=== PATIENT | male | born 1985 | race African-American/Black ===

== ENCOUNTER 2017-09-12 07:37 | Emergency (ER) | payer OTHER ==
[2017-09-12] MEDS ORDERED: Ketorolac 60 MG/2 ML SDV IM ONE (08:16)
--- NOTE | 2017-09-12 08:28 | EDM.PDOC ---
ED HPI GENERAL MEDICAL PROBLEM - General Chief Complaint: General Stated Complaint: RIGHT SHOULDER PAIN/Neck pain Time Seen by Provider: 09/12/17 08:05 Source of Information: Reports: Patient History Limitations: Reports: No Limitations - History of Present Illness INITIAL COMMENTS - FREE TEXT/NARRATIVE: 32 YO presents to ER complaining of neck and right shoulder pain which began yesterday after lifting multiple bags of sunflower seeds at work. Pt denies any arm numbness, weakness or pain. Pt without any neck or shoulder pain history. Denies fever/chills or nausea/vomiting. Onset Date: 09/11/17 Duration: Day(s): (1) Location: Reports: Neck, Upper Extremity, Right Quality: Reports: Ache Severity: Mild Improves with: Reports: Rest Worsens with: Reports: Movement Context: Reports: Activity Associated Symptoms: Reports: No Other Symptoms Right Shoulder Pain Score (Numeric/FACES): 7 - Related Data Home Meds: Home Meds Cyclobenzaprine [Flexeril] 10 mg PO TID PRN #15 tab 09/12/17 [Rx] Ibuprofen [Motrin] 800 mg PO TID #15 tablet 09/12/17 [Rx] traMADol [Ultram] 50 mg PO Q6H PRN #15 tab 09/12/17 [Rx] Social & Family History - Tobacco Use Smoking Status *Q: Current Every Day Smoker Years of Tobacco use: 1 Packs/Tins Daily: 0.3 Used Tobacco, but Quit: No Second Hand Smoke Exposure: No - Caffeine Use Caffeine Use: Reports: Soda - Alcohol Use Days Per Week of Alcohol Use: 1 Number of Drinks Per Day: 6 Total Drinks Per Week: 6 - Recreational Drug Use Recreational Drug Use: No ED ROS GENERAL - Review of Systems Review Of Systems: See Below Constitutional: Reports: No Symptoms HEENT: Reports: No Symptoms Respiratory: Reports: No Symptoms Cardiovascular: Reports: No Symptoms Endocrine: Reports: No Symptoms GI/Abdominal: Reports: No Symptoms : Reports: No Symptoms Musculoskeletal: Reports: Neck Pain, Shoulder Pain Skin: Reports: No Symptoms Neurological: Reports: No Symptoms Psychiatric: Reports: No Symptoms Hematologic/Lymphatic: Reports: No Symptoms Immunologic: Reports: No Symptoms ED EXAM, GENERAL - Physical Exam Exam: See Below Exam Limited By: No Limitations General Appearance: Alert, WD/WN, No Apparent Distress Nose: Normal Inspection, Normal Mucosa, No Blood Throat/Mouth: Normal Inspection, Normal Lips, Normal Teeth, Normal Gums, Normal Oropharynx, Normal Voice, No Airway Compromise Head: Atraumatic, Normocephalic Neck: Supple, Full Range of Motion, Tender Lateral Respiratory/Chest: No Respiratory Distress, Lungs Clear, Normal Breath Sounds, No Accessory Muscle Use, Chest Non-Tender Cardiovascular: Normal Peripheral Pulses, Regular Rate, Rhythm, No Edema, No Gallop, No JVD, No Murmur, No Rub GI/Abdominal: Normal Bowel Sounds, Soft, Non-Tender, No Organomegaly, No Distention, No Abnormal Bruit, No Mass Back Exam: Normal Inspection, Full Range of Motion, NT Extremities: Normal Inspection, Normal Range of Motion, Non-Tender, Normal Capillary Refill, No Pedal Edema Neurological: Alert, Oriented, CN II-XII Intact, Normal Cognition, Normal Gait, Normal Reflexes, No Motor/Sensory Deficits Psychiatric: Normal Affect, Normal Mood Skin Exam: Warm, Dry, Intact, Normal Color, No Rash Lymphatic: No Adenopathy Course - Vital Signs Last Recorded V/S: Last Vital Signs Temp 37.7 C 09/12/17 07:43 Pulse 106 H 09/12/17 07:43 Resp 18 09/12/17 07:43 BP 161/94 H 09/12/17 07:43 Pulse Ox 94 L 09/12/17 07:43 - Orders/Labs/Meds Orders: Active Orders 24 hr Category Date Time Status Cervical Spine 2V or 3V [CR] Stat Exams 09/12/17 07:52 Ordered Ketorolac [Toradol] Med 09/12/17 08:16 Once 60 mg IM ONETIME ONE - Radiology Interpretation Free Text/Narrative:: cervical xray- NAD Departure - Departure Time of Disposition: 08:36 Disposition: Home, Self-Care 01 Condition: Good Clinical Impression: Cervical strain, acute Qualifiers: Encounter type: initial encounter Qualified Code(s): S16.1XXA - Strain of muscle, fascia and tendon at neck level, initial encounter - Discharge Information Prescriptions: Cyclobenzaprine [Flexeril] 10 mg PO TID PRN #15 tab PRN Reason: Muscle Spasm Ibuprofen [Motrin] 800 mg PO TID #15 tablet traMADol [Ultram] 50 mg PO Q6H PRN #15 tab PRN Reason: Pain Instructions: Cervical Sprain, [id number] Referrals: PCP,Not In Area [Primary Care Provider] - Rachele Hutchinson MD [Physician] - - My Orders Last 24 Hours: My Active Orders 09/12/17 07:52 Cervical Spine 2V or 3V [CR] Stat 09/12/17 08:16 Ketorolac [Toradol] 60 mg IM ONETIME ONE - Assessment/Plan Last 24 Hours: My Active Orders 09/12/17 07:52 Cervical Spine 2V or 3V [CR] Stat 09/12/17 08:16 Ketorolac [Toradol] 60 mg IM ONETIME ONE Assessment:: 1. cervical strain Plan: 1. motrin 600mg PO Q^ x 5 days 2. ultram 50mg PO Q6 PRN pain 3. Flexril 10mg PO TID PRN muscle spasms 4. follow up with human resources if pain continues and to return to work 5. return to ER for worsening symptoms
== END 2017-09-12 08:45 | disposition home or self-care (01) ==
LOC: KA.ED 07:37
DX: S16.1XXA Strain of muscle, fascia and tendon at neck level, initial encounter (principal); F17.210 Nicotine dependence, cigarettes, uncomplicated; X50.0XXA Overexertion from strenuous movement or load, initial encounter
CPT/HCPCS: 72040; 96372; 99283; J1885